=== PATIENT | male | born 1960 | race Two or more races ===

== ENCOUNTER 2019-12-22 08:05 | Day surgery (SDC) | payer OTHER ==
[2019-12-22] VITALS (10 sets, daily range): BP systolic 107–152; BP diastolic 76–85
[~2019-12-22] VITALS: Ht 182.9 cm; Wt 104.3 kg
[2019-12-22] MEDS ORDERED: CANDESARTAN CILE4 MG PO (08:38)
[2019-12-22] MEDS ORDERED: AMLODIPINE BESYL5 MG ORAL (08:38)
--- NOTE | 2019-12-22 08:45 | Short Stay Surgery H&P ---
History of Present Illness History of Present Illness Chief Complaint Abdominal pains/GERDs HPI Milton Chery II is a 59 year old male who was admitted on for Abdominal Pain Gastroesophageal Reflux Disease Patient History PAST MEDICAL HISTORY: (1) Hypertension (2) Status post knee surgery (3) Status post spinal surgery (4) Status post inguinal hernia repair Medication History Scheduled Amlodipine Besylate* (Amlodipine Besylate*), 5 MG ORAL DAILY, (Reported) Candesartan Cilexetil (Candesartan Cilexetil), 4 MG PO DAILY, (Reported) Review of Systems Cardiovascular: Reports: hypertension Respiratory: Reports: no symptoms Skeletal: Reports: trauma Gastrointestinal: Reports: gastro esophageal reflux disease Genitourinary: Reports: no symptoms Neurologic: Reports: no symptoms Endocrine: Reports: no symptoms Physical Exam Skin: normal HENT: normal Heart: normal Lungs: normal Abdomen: abnormal Extremities: normal Genitourinary: normal Plan Plan of Care Upper GI endoscopy with obtaining biopsy. Preop Interventions None. Summary of Findings See the reports. Attestation Are the patient's medical conditions optimized for surgery? Attestation Response: yes Royce Red MD Dec 22, 2019 08:45
--- NOTE | 2019-12-22 08:46 | Pre-Procedure Note/Attestation ---
Pre-Procedure Note/Attestation Complete Prior to Procedure Planned Procedure: left Procedure Narrative: Examination of the upper GI tract via endoscopy. Indications for Procedure Pre-Operative Diagnosis: R/O Gastritis/peptic ulcer/esophagitis. Attestation I attest that I discussed the nature of the procedure; its benefits; risks and complications; and alternatives (and the risks and benefits of such alternatives), prior to the procedure, with the patient (or the patient's legal media sales representative). I attest that, if there was a reasonable possibility of needing a blood transfusion, the patient (or the patient's legal media sales representative) was given the [place] [employer] [facility] standardized written summary, pursuant to the [place] Carl Blood Safety Act ([place] Health and Safety Code # 1645, as amended). I attest that I re-evaluated the patient just prior to the surgery and that ther e has been no change in the patient's H&P, except as documented below: Royce Red MD Dec 22, 2019 08:46
[2019-12-22] MEDS ORDERED: LR 1000ml ONE (09:00)
--- NOTE | 2019-12-22 09:17 | Anethesia Preoperative Eval ---
Anesthesia Pre-op PMH/ROS General Date of Evaluation: Dec 22, 2019 Time of Evaluation: 09:14 Anesthesiologist: Anderson ASA Score: ASA 2 Mallampati Score Class I : Soft palate, uvula, fauces, pillars visible Class II: Soft palate, uvula, fauces visible Class III: Soft palate, base of uvula visible Class IV: Only hard plate visible Mallampati Classification: Class II Surgeon: Neno Diagnosis: Abdominal pain Surgical Procedure: EGD Anesthesia History: none Family History: no anesthesia problems Medications: see eMAR Patient NPO?: Yes Past Medical History Cardiovascular: Reports: HTN - stable; Denies: CAD, DC, valve dz, arrhythmia, other Pulmonary: Denies: asthma, COPD, PARAG, other Gastrointestinal/Genitourinary: Reports: GERD; Denies: CRI, ESRD, other Neurologic/Psychiatric: Reports: other - chronic pain; Denies: dementia, CVA, depression/anxiety, TIA Endocrine: Denies: DM, hypothyroidism, steroids, other HEENT: Denies: cataract (L), cataract (R), glaucoma, [place] (L), [place] (R), other Hematology/Immune: Denies: anemia, DVT, bleeding disorder, other Musculoskeletal/Integumentary: Reports: OA; Denies: RA, DJD, DDD, edema, other Other: other - overweight PMH Narrative: as above PSxH Narrative: Back Sx, knee replacement Anesthesia Pre-op Phys. Exam Physician Exam Last Vital Signs Date Time Temp Pulse Resp B/P (MAP) Pulse Ox O2 Delivery O2 Flow Rate FiO2 12/22/19 08:43 Room Air 12/22/19 08:43 97.7 98 18 121/81 98 Constitutional: NAD Neurologic: CN 2-12 intact Cardiovascular: RRR, no M/R/G Respiratory: CTA Gastrointestinal: S/NT/ND Airway Exam Mallampati Score: Class II MO: full Neck: stiff, s/p fusion ROM: limited Teeth: intact Dentures: no upper, no lower Anesthesia Pre-op A/P Labs see chart Studies Pre-op Studies: EKG - SR Risk Assessment & Plan Assessment: ASA 2 Plan: MAC Status Change Before Surgery: Josias Lockwood MD Dec 22, 2019 09:17
[2019-12-22] MEDS ORDERED: fentaNYL 100 mcg/2 mL IV ONE (09:22)
[2019-12-22] MEDS ORDERED: Midazolam 2mg/2ml Inj ONE (09:30)
--- NOTE | 2019-12-22 09:30 | Discharge Instructions ---
Discharge Instructions Discharge Instructions Follow up with: No need to go back to the office. Report will sent to your doctor. For Congestive Heart Failure Reminder Report to your physician any weight gain of 5 pounds or more in one week. Royce Red MD Dec 22, 2019 09:29
--- NOTE | 2019-12-22 09:38 | Endoscopy Procedure Note ---
Endoscopy Procedure Note General Indication for Procedure: Abdominal pains/GERDs Procedures Performed: EGD - Moderate bile gastritis, biopsy obtained from gastric body. Moderate size Hiatal Hernia. Specimen: yes Estimated Blood Loss: none Anesthesia Anesthesiologist: Dr. An Anesthesia: moderate sedation Medications Medication Given: see anesthesia record Inserted Devices Implant(s) used?: No Quality Quality of Bowel Preparation: Fair Was there any complications?: No GI Core Measures 50 yrs or older w/o bx or poly: Not Applicable 10yrs. F/U recommended: Not Applicable If not recommended, why?: Med reason:<3 yrs.: System Reason:<3 yrs.: Royce Red MD Dec 22, 2019 09:38
--- NOTE | 2019-12-22 09:48 | Immediate Post-Op Evaluation ---
Immediate Post-Op Evalulation Immediate Post-Op Evalulation Procedure: EGD with Bx Date of Evaluation: Dec 22, 2019 Time of Evaluation: 09:47 IV Fluids: 300 Blood Products: none Estimated Blood Loss: none Urinary Output: none Blood Pressure Systolic: 108 Blood Pressure Diastolic: 68 Pulse Rate: 58 Respiratory Rate: 18 O2 Sat by Pulse Oximetry: 98 Temperature (Fahrenheit): 97.6 Pain Score (1-10): 1 Nausea: No Vomiting: No Complications none Patient Status: awake, patent, none Hydration Status: adequate Josias Barron MD Dec 22, 2019 09:48
--- NOTE | 2019-12-22 11:00 | Operative Note - Dictated ---
DATE OF OPERATION: 12/22/2019 SURGEON: Royce Red MD. PROCEDURE: Esophagogastroduodenoscopy with biopsy. PREOPERATIVE DIAGNOSES: Abdominal pain and epigastric pain, rule out NSAID-induced peptic ulcer disease, gastropathy, esophagitis. POSTOPERATIVE DIAGNOSES: 1. Moderate mild gastritis. Biopsy was taken from the gastric body. 2. Moderate-sized hiatal hernia. MEDICATION USED: Per anesthesiologist, Dr. Barron. INSTRUMENT: GIF Olympus upper GI video endoscope. DESCRIPTION OF PROCEDURE: The patient after arriving in the endoscopy unit, was told about risks and benefits of the procedure, which he accepted and signed informed consent. At this time, he was put in the left lateral decubitus position. After adequate IV sedation, the scope was gently passed through the cricopharyngeal area, was lodged into the upper esophagus and gradually advanced towards gastroesophageal junction. The entire length of esophagus looked normal. No evidence of inflammatory process, ulceration, polyps, tumors, etc. was found. GE junction also looked normal without any evidence of Lopez's. However, there was evidence of moderate-sized hiatal hernia noted. At this time, the scope was gradually advanced into the gastric cavity where by with insufflation of air the gastric fold came into view which were covered with moderate amount of bile suggestive of duodenogastric bile reflux. There was evidence of moderate inflammatory process with enlargement of gastric fold over the greater curvature side of the stomach consistent with moderate gastritis as well. No evidence of polyps or tumors were found. Gradually, the areas of the body and the antrum all the way to the pylorus were examined which revealed evidence of moderate gastritis as I mentioned, but no polyps or tumors or bleeding sites were noted. At this time, the scope was passed through the pylorus. First and second portion of duodenum were found to be completely normal. At this time, after obtaining a random biopsy from the gastric body and mid part of the stomach, the procedure was terminated. The patient tolerated the procedure well and left the endoscopy room in a good condition. Royce Red M.D. DR: LOGAN JOB#: [id number] CC:
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
--- NOTE | 2019-12-22 12:45 | 48 Hour Post Anesthesia Eval ---
Post Anesthesia Evaluation Procedure: EGD with Bx Date of Evaluation: Dec 22, 2019 Time of Evaluation: 12:44 Blood Pressure Systolic: 152 0: 76 Pulse Rate: 64 Respiratory Rate: 18 Temperature (Fahrenheit): 97.6 O2 Sat by Pulse Oximetry: 98 Airway: patent Nausea: No Vomiting: No Pain Intensity: 1 Hydration Status: adequate Cardiopulmonary Status: stable Mental Status/LOC: patient returned to baseline Follow-up Care/Observations: n/a Post-Anesthesia Complications: none Follow-up care needed: ready to discharge Josias Barron MD Dec 22, 2019 12:45
== END 2019-12-22 10:55 | disposition home or self-care (01) ==
LOC: SUR 08:05
DX: R10.13 Epigastric pain (principal); K29.50 Unspecified chronic gastritis without bleeding; B96.81 Helicobacter pylori [H. pylori] as the cause of diseases classified elsewhere; K44.9 Diaphragmatic hernia without obstruction or gangrene; I10 Essential (primary) hypertension; K21.9 Gastro-esophageal reflux disease without esophagitis; M19.90 Unspecified osteoarthritis, unspecified site; Z96.652 Presence of left artificial knee joint; Z98.1 Arthrodesis status; Z79.899 Other long term (current) drug therapy; E66.9 Obesity, unspecified
CPT/HCPCS: 43239; 94003; J2250; J2704; J3010; J7120; U0002; 94150